=== PATIENT | female | born 1965 | race Caucasian/White ===

== ENCOUNTER → 2016-10-12 | Outpatient (CLI) | payer BC ==
[~2016-10-12] MED LIST: NO MEDICATIONS; TYLENOL #3 PO
--- NOTE | ~2016-10-12 | BD1 ---
[facility] A Service of [facility] & [facility] RADIOLOGY TEXT RESULTS PATIENT: SUDHIR LEMUS LOCATION: SRA : 61 UNIT #: [id number] AGE: [address]: Bernice Tapia APRN SEX: F ORDER DR: [id number] [address] [address] [id number] O MR#: [id number] Acc #: [id number] NAME: SUDHIR LEMUS : 1965 SEX: F STUDY DATE/TIME: 10/12/2016 9:16 UNIT: SRAD ROOM: STUDY DESCRIPTION: Dexa Bone Dens 1+ Site Attending Physician: Bernice Tapia A.P.R.N. Referring Physician: Bernice Tapia A.P.R.N. Ordering Physician: Bernice Tapia A.P.R.N. Primary Care Physician: Bernice Tapia A.P.R.N. MEDICAL IMAGING REPORT This report is preliminary unless electronic signature is present. EXAM DXA scan, 10/12/2016. HISTORY Status post menopause with no hormone replacement therapy. Osteopenia. Family history of osteoporosis in mother. Fracture of toe in the last 10 years. FINDINGS Bone mineral density in the lumbar spine from L1-L4 is 1.077 g/cm2 which is 0.9 standard deviations below the mean when compared to the young adult reference population which is within the range of normal. This is 0.5 standard deviations below the mean when compared to the age-matched population. Bone mineral density in the left femoral neck was 0.768 g/cm2 which is 1.9 standard deviations below the mean when compared to the young adult reference population which is characteristic of osteopenia. This is 1.2 standard deviations below the mean when compared to the age-matched population. Bone mineral density in the right femoral neck was 0.777 g/cm2 which is 1.9 standard deviations below the mean when compared to the young adult reference population which is characteristic of osteopenia. This is 1.1 standard deviations below the mean when compared to the age-matched population. IMPRESSION Bone mineral density in the lumbar spine within the range of normal and within the hips bilaterally characteristic of osteopenia. [facility] A Service of [facility] & [facility] RADIOLOGY TEXT RESULTS PATIENT: SUDHIR LEMUS LOCATION: SRA : 61 UNIT #: [id number] AGE: [address]: Bernice Tapia APRN SEX: F ORDER DR: Dictated by... Andrew Brantley M.D. THIS IS AN ELECTRONICALLY VERIFIED REPORT Andrew Brantley M.D. at 10/13/2016 7:24 AM JAIMEE/piter TD: 10/12/2016 21:53 JOB #: [id number] MEDICAL IMAGING REPORT Page 1 of 1
--- NOTE | ~2016-10-12 | MY30 ---
[facility] A Service of [facility] & [facility] RADIOLOGY TEXT RESULTS PATIENT: SUDHIR LEMUS LOCATION: SRA : 61 UNIT #: [id number] AGE: [address]: Bernice Tapia APRN SEX: F ORDER DR: [id number] [address] [address] [id number] O MR#: [id number] Acc #: [id number] NAME: SUDHIR LEMUS : 1965 SEX: F STUDY DATE/TIME: 10/12/2016 10:01 UNIT: SRAD ROOM: STUDY DESCRIPTION: MY SCREEN HUBERT BILAT DIGITAL Attending Physician: Bernice Tapia A.P.R.N. Referring Physician: Bernice Tapia A.P.R.N. Ordering Physician: Bernice Tapia A.P.R.N. Primary Care Physician: Bernice Tapia A.P.R.N. MEDICAL IMAGING REPORT This report is preliminary unless electronic signature is present. EXAM Digital screening mammogram 10/12/2016 HISTORY 51-year-old woman, no risk elevation. Annual screen. COMPARISON 05/16/2006, 08/31/2007. FINDINGS Digital imaging of each breast was completed utilizing screening protocol. Review includes FDA-approved CAD device. Breast parenchyma remains dense with a combination of fibroglandular parenchyma and small parenchymal fibronodularity. Mild dominance upper outer quadrant right breast is again noted. There appears to be minimal architectural distortion projecting in the upper hemisphere of the right breast, identified on the MLO projection and not clearly identified on the craniocaudal projection. I expect this represents a summation artifact however, additional right breast imaging is recommended to include a true lateral projection and exaggerated craniocaudal projection with spot compression. Targeted ultrasound will be performed if indicated. Benign appearance of the left breast is stable. I see no microcalcifications in either breast. IMPRESSION Incomplete mammographic examination. Additional right breast imaging is recommended. See complete report with recommendations. BIRADS 0, additional right breast imaging recommended. Patients over the age of 40 are entered into a reminder system with target due date for the next mammogram. A result letter will also be sent to the patient. [facility] A Service of [facility] / [facility] RADIOLOGY TEXT RESULTS PATIENT: SUDHIR LEMUS LOCATION: SRAD : 61 UNIT #: [id number] AGE: [address]: Bernice Tapia APRN SEX: F ORDER DR: BIRADS: 0. Incomplete; Need additional imaging evaluation and/or prior mammograms for comparison Dictated by... Mckay Chacon M.D. THIS IS AN ELECTRONICALLY VERIFIED REPORT Mckay Chacon M.D. at 10/12/2016 3:01 PM JORDI/lenore TD: 10/12/2016 14:00 JOB #: [id number] MEDICAL IMAGING REPORT Page 1 of 1
== END | disposition home or self-care (01) ==
LOC: SRAD 08:50
DX: Z12.31 Encounter for screening mammogram for malignant neoplasm of breast (principal); Z13.820 Encounter for screening for osteoporosis; Z78.0 Asymptomatic menopausal state
CPT/HCPCS: 77080; G0202

== ENCOUNTER → 2016-10-22 | Outpatient (CLI) | payer BC ==
--- NOTE | ~2016-10-22 | MY25 ---
[facility] A Service of [facility] & [facility] RADIOLOGY TEXT RESULTS PATIENT: SUDHIR LEMUS LOCATION: [facility] : 61 UNIT #: [id number] AGE: [address]: Bernice Tapia APRN SEX: F ORDER DR: [id number] [facility] [address]. [place], [place] [address] [id number] O MR#: [id number] Acc #: [id number] NAME: SUDHIR LEMUS : 1965 SEX: F STUDY DATE/TIME: 10/22/2016 13:40 UNIT: [facility] ROOM: STUDY DESCRIPTION: EDNA HUBERT DIAG W/ CAD UNI RT Attending Physician: Bernice Tapia A.P.R.N. Referring Physician: Bernice Tapia A.P.R.N. Ordering Physician: Bernice Tapia A.P.R.N. Primary Care Physician: Bernice Tapia A.P.R.N. MEDICAL IMAGING REPORT This report is preliminary unless electronic signature is present EXAM Right breast digital diagnostic mammogram with CAD 10/22/2016 HISTORY Architectural distortion 1-2 views of the previous screening mammogram for which additional diagnostic imaging was recommended. COMPARISON Mild digital diagnostic bilateral digital screening mammogram 10/12/2016, 08/31/2007. FINDINGS True ML views obtained of the right breast, along with spot compression views in the MLO plane. Extended craniocaudal lateral view was also obtained. The questioned area of architectural distortion in the superior right breast on previous screening mammogram has no abnormal correlate on today's true ML view. Additionally, only normal fibroglandular tissue is demonstrated on the spot compression MLO view. No nodule or microcalcification is seen. IMPRESSION Right breast BIRADS 1. Negative examination. The questioned area of architectural distortion in the right breast on previous screening mammogram likely represented summation artifact. There are no features suspicious for malignancy on today's exam. Routine bilateral screening mammogram recommended in 1 year. Findings and recommendations were discussed with patient today in the radiology department. BIRADS: 1 Negative. STS. [facility] A Service of [facility] & [facility] RADIOLOGY TEXT RESULTS PATIENT: SUDHIR LEMUS LOCATION: [facility] : 61 UNIT #: [id number] AGE: [address]: Bernice Tapia APRN SEX: F ORDER DR: Patients over the age of 40 are entered into a reminder system with target due date for the next mammogram. A result letter will also be sent to the patient. Dictated by... Nadine Vila M.D. THIS IS AN ELECTRONICALLY VERIFIED REPORT Nadine Vila M.D. at 10/25/2016 8:49 AM NEREYDA/romain TD: 10/22/2016 19:54 JOB #: [id number] MEDICAL IMAGING REPORT Page 1 of 1 COPY
== END | disposition home or self-care (01) ==
LOC: CMAM 13:00
DX: R92.8 Other abnormal and inconclusive findings on diagnostic imaging of breast (principal)
CPT/HCPCS: G0206